=== PATIENT | female | born 1980 | race African-American/Black ===

== ENCOUNTER 2017-03-13 11:32 | Emergency (ER) | payer OTHER ==
[2017-03-13 11:32] VITALS: BP 154/74
[~2017-03-13 11:32] MED LIST: PREN1TAB54 PO
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
[2017-03-13] MEDS ORDERED: HYDROcodone/APAP 5/325MG 1 TAB TABLET PO ONE (12:00)
[2017-03-13] MEDS ORDERED: ONDANSETRON ODT 4 MG TAB.RAPDIS PO ONE (12:00)
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
== END 2017-03-13 13:05 | disposition home or self-care (01) ==
LOC: ER 11:32
DX: S20.219A Contusion of unspecified front wall of thorax, initial encounter (principal); V43.62XA Car passenger injured in collision with other type car in traffic accident, initial encounter; Y93.89 Activity, other specified; Y99.8 Other external cause status; Y92.89 Other specified places as the place of occurrence of the external cause
CPT/HCPCS: 71020; 99284; Q0162

== ENCOUNTER 2017-11-25 13:09 | Emergency (ER) | payer OTHER ==
[~2017-11-25] VITALS: Ht 149.9 cm; Wt 132.0 kg
[2017-11-25] MEDS ORDERED: IV NORMAL SALINE 1,000ML 1,000 ML IV ONE (13:45)
[2017-11-25 14:11] LABS: BILIRUBIN,URINE NEG (NEG); CLARITY,URINE HAZY; COLOR,URINE AMBER; GLUCOSE,URINE NEG (NEG); NITRITE,URINE POS (NEG); UROBILINOGEN,URINE 1 mg/dL (0.2 mg/dL)
[2017-11-25 14:12] LABS: BACTERIA,URINE MANY /HPF (0-FEW); WBC,URINE >40 /HPF (0-4)
[2017-11-25 14:13] LABS: SQUAMOUS EPITHELIAL CELL,UR FEW /LPF
[2017-11-25 14:26] LABS: BASO # 0.1 x10^3/uL (0.0-0.2); BASO % 1 % (0-3); EOS # 0.1 x10^3/uL (0.0-0.7); EOS % 1 % (0-3); HEMATOCRIT 39.5 % (36.0-47.0); LYMPH # 3.8 x10^3/uL (1.0-4.8); LYMPH % 33 % (24-48); MEAN CORPUSCULAR HEMOGLOBIN 30 pg (25-35); MEAN CORPUSCULAR HGB CONC 33 g/dL (31-37); MEAN CORPUSCULAR VOLUME 91 fL (79-100); MONO # 1.1 x10^3/uL (0.0-1.1); MONO % 9 % (0-9); NEUT # 6.4 x10^3uL (1.8-7.7); NEUT % 55 % (31-73); PLATELET COUNT 214 x10^3/uL (140-400); RED BLOOD COUNT 4.36 x10^6/uL (3.50-5.40); RED CELL DISTRIBUTION WIDTH 13.3 % (11.5-14.5); WHITE BLOOD COUNT 11.5 x10^3/uL (4.0-11.0)
[2017-11-25 14:41] LABS: CALCIUM 9.2 mg/dL (8.5-10.1); CREATININE 0.8 mg/dL (0.6-1.0); GFR 98.8; POTASSIUM 3.8 mmol/L (3.5-5.1)
[2017-11-25] MEDS ORDERED: cefTRIAXone IV Push 1 GM VIAL. IVP SCH (15:00)
[2017-11-25 15:05] LABS: % LYMPHS 41 % (24-48); % MONOS 9 % (0-10); % SEGS 50 % (35-66)
[2017-11-25 15:07] LABS: PLT ESTIMATE ADEQUATE (ADEQUATE)
[2017-11-25] MEDS ORDERED: SULF1TAB24 PO (15:09)
--- NOTE | 2017-11-25 15:09 | PHYS DOC ---
Past History Past Medical History: No Pertinent History Past Surgical History: Cholecystectomy, , Tubal ligation Smoking: Non-smoker Alcohol Use: None Drug Use: None Adult General Chief Complaint Chief Complaint: FLANK PAIN HPI HPI Patient is a 37 year old F who presents with urinary frequency and urgency associated with bilateral flank pain over the past 3-4 days. She also describes nausea. She states that this is similar to her previous kidney infection. However it does not feel as severe. [facility] and referred to the emergency room. She denies fever sweats or chills. His no other associated symptoms. She has no exacerbating or alleviating factors. Review of Systems Review of Systems Constitutional: Denies fever or chills [] Eyes: Denies change in visual acuity, redness, or eye pain [] HENT: Denies nasal congestion or sore throat [] Respiratory: Denies cough or shortness of breath [] Cardiovascular: No additional information not addressed in HPI [] GI: Denies abdominal pain, vomiting, bloody stools or diarrhea [] : Denies hematuria [] Musculoskeletal: Denies joint pain [] Integument: Denies rash or skin lesions [] Neurologic: Denies headache, focal weakness or sensory changes [] Endocrine: Denies polyuria or polydipsia [] All other systems were reviewed and found to be within normal limits, except as documented in this note. Family History Family History No pertinent family medical history was reported Current Medications Current Medications Current medications reviewed Current Medications Medications (Trade) Dose Ordered Sig/Samanta Start Time Stop Time Status Last Admin Dose Admin Ceftriaxone Sodium 1 gm/ Sodium Chloride 50 ml @ 100 mls/hr 1X ONCE 11/25/17 14:45 11/25/17 15:14 UNV Ceftriaxone Sodium (Rocephin) 1 gm Q24H 11/25/17 15:00 11/25/17 14:54 1 GM Sodium Chloride 1,000 ml @ 1,000 mls/hr 1X ONCE 11/25/17 13:45 11/25/17 14:44 DC 11/25/17 14:07 1,000 MLS/HR Allergies Allergies Allergies Uncoded Allergies Type Severity Reaction Last Updated Verified dairy Allergy Unknown 11/25/17 Physical Exam Physical Exam Constitutional: Well developed, well nourished, no acute distress, non-toxic appearance. [] HENT: Normocephalic, atraumatic, Eyes: EOMI, conjunctiva normal, no discharge. [] Neck: Normal range of motion, no tenderness, supple, no stridor. [] Cardiovascular:Heart rate regular rhythm, Lungs & Thorax: Bilateral breath sounds clear to auscultation [] Abdomen: Bowel sounds normal, soft, no tenderness, no masses, no pulsatile masses. [] Skin: Warm, dry, no erythema, no rash. [] Back: Mild bilateral flank pain with palpation Extremities: No tenderness, no cyanosis, no clubbing, ROM intact, no edema. [] Neurologic: Alert and oriented X 3, normal motor function, normal sensory function, no focal deficits noted. [] Psychologic: Affect normal, judgement normal, mood normal. [] Current Patient Data Vital Signs Vital Signs Date Time Temp Pulse Resp B/P (MAP) Pulse Ox O2 Delivery O2 Flow Rate FiO2 11/25/17 13:40 98.6 79 18 99 Room Air Lab Results Laboratory Tests Test 11/25/17 13:45 11/25/17 13:57 Urine Collection Type Void Urine Color [place] Urine Clarity Hazy Urine pH 5.5 Urine Specific Sidney 1.010 Urine Protein 30 mg/dl (NEG-TRACE) Urine Glucose (UA) Neg mg/dL (NEG) Urine Ketones (Stick) Neg mg/dL (NEG) Urine Blood Mod (NEG) Urine Nitrite Pos (NEG) Urine Bilirubin Neg (NEG) Urine Urobilinogen Dipstick 1 mg/dL (0.2 mg/dL) Urine Leukocyte Esterase Small (NEG) Urine RBC 11-20 /HPF (0-2) Urine WBC >40 /HPF (0-4) Urine Squamous Epithelial Cells Few /LPF Urine Bacteria Many /HPF (0-FEW) Urine Mucus Slight /LPF White Blood Count 11.5 x10^3/uL (4.0-11.0) H Red Blood Count 4.36 x10^6/uL (3.50-5.40) Hemoglobin 13.0 g/dL (12.0-15.5) Hematocrit 39.5 % (36.0-47.0) Mean Corpuscular Volume 91 fL (79-100) Mean Corpuscular Hemoglobin 30 pg (25-35) Mean Corpuscular Hemoglobin Concent 33 g/dL (31-37) Red Cell Distribution Width 13.3 % (11.5-14.5) Platelet Count 214 x10^3/uL (140-400) Neutrophils (%) (Auto) 55 % (31-73) Lymphocytes (%) (Auto) 33 % (24-48) Monocytes (%) (Auto) 9 % (0-9) Eosinophils (%) (Auto) 1 % (0-3) Basophils (%) (Auto) 1 % (0-3) Neutrophils # (Auto) 6.4 x10^3uL (1.8-7.7) Lymphocytes # (Auto) 3.8 x10^3/uL (1.0-4.8) Monocytes # (Auto) 1.1 x10^3/uL (0.0-1.1) Eosinophils # (Auto) 0.1 x10^3/uL (0.0-0.7) Basophils # (Auto) 0.1 x10^3/uL (0.0-0.2) Platelet Estimate Pending Sodium Level 138 mmol/L (136-145) Potassium Level 3.8 mmol/L (3.5-5.1) Chloride Level 101 mmol/L (98-107) Carbon Dioxide Level 28 mmol/L (21-32) Anion Gap 9 (6-14) Blood Urea Nitrogen 5 mg/dL (7-20) L Creatinine 0.8 mg/dL (0.6-1.0) Estimated GFR (Cockcroft-Gault) 98.8 Glucose Level 79 mg/dL (70-99) Calcium Level 9.2 mg/dL (8.5-10.1) EKG EKG [] Radiology/Procedures Radiology/Procedures [] Course & Med Decision Making Course & Med Decision Making Pertinent Labs and Imaging studies reviewed. (See chart for details) She was given a dose of IV Rocephin her to discharge Dragon Disclaimer Dragon Disclaimer This electronic medical record was generated, in whole or in part, using a voice recognition dictation system. Departure Departure: Impression: Primary Impression: Pyelonephritis Disposition: 01 HOME, SELF-CARE Condition: STABLE Referrals: PCP,NO (PCP) Patient Instructions: Pyelonephritis, Adult Additional Instructions: Norma was seen in the emergency department for urinary problems and back pain. No emergency medical condition was found on history or physical exam. She did have labs that suggested a kidney infection. She was given a dose of IV antibiotics and a prescription for oral antibiotics to continue over the next 2 weeks. She is encouraged to return to the emergency room if she develops new or worsening symptoms. She was also encouraged follow-up with her primary care doctor in the next 5-7 days for further management. Scripts Sulfamethoxazole/Trimethoprim (BACTRIM DS TABLET) 1 Each Tablet 1 TAB PO BID for 14 Days, #28 TAB Prov: HELGA OLIVEROS MD 11/25/17 HELGA OLIVEROS MD Nov 25, 2017 15:09
[2017-11-25 15:20] VITALS: BP 124/76
== END 2017-11-25 15:20 | disposition home or self-care (01) ==
LOC: ER 13:09
DX: N12 Tubulo-interstitial nephritis, not specified as acute or chronic (principal); Z90.49 Acquired absence of other specified parts of digestive tract; Z98.51 Tubal ligation status; Z91.011 Allergy to milk products
CPT/HCPCS: 36415; 80048; 81001; 85007; 85025; 96361; 96374; 99284; J0696; J7030

== ENCOUNTER 2019-10-10 21:16 | Emergency (ER) | payer OTHER ==
[~2019-10-10] VITALS: Ht 149.9 cm; Wt 137.3 kg
[2019-10-10 21:16] VITALS: BP 128/72
[~2019-10-10 21:16] MED LIST changes: +SULF1TAB24 PO
--- NOTE | 2019-10-10 21:19 | PHYS DOC ---
Past History Past Medical History: No Pertinent History Past Surgical History: Cholecystectomy, , Tubal ligation Smoking: Non-smoker Alcohol Use: None Drug Use: None Adult General Chief Complaint Chief Complaint: COUGH.. ".. I ve been coughing like crazy... nothing really coming up.. fever .. chills... last couple days.. ".. " One of people at work has Influ A.. " HPI HPI Patient is a 39 year old female who presents with above hx and complaints of cough, fever, chills, malaise, arthralgia, myalgia, wheezing, and pharyngitis. Patient denies any travel . Has been exposed to coworkers that has influenza A. Patient denied get a flu vaccination this season. No history immunosuppression. Patient normally follows Dr. Vergara Review of Systems Review of Systems Constitutional: History of fever or chills [] Eyes: Denies change in visual acuity, redness, or eye pain [] HENT: History of nasal congestion and sore throat [] Respiratory: History of cough and wheezing Cardiovascular: No additional information not addressed in HPI [] GI: Denies abdominal pain, nausea, vomiting, bloody stools or diarrhea [] : Denies dysuria or hematuria [] Musculoskeletal: Complaints of generalized myalgia and arthralgia Integument: Denies rash or skin lesions [] Neurologic: Denies headache, focal weakness or sensory changes [] Endocrine: Denies polyuria or polydipsia [] All other systems were reviewed and found to be within normal limits, except as documented in this note. Family History Family History Noncontributory to presentation Current Medications Current Medications See nursing for home medications Allergies Allergies Allergies Uncoded Allergies Type Severity Reaction Last Updated Verified dairy Allergy Unknown 11/25/17 Physical Exam Physical Exam Constitutional: Moderate acute distress, non-toxic appearance. [] HENT: Normocephalic, atraumatic, bilateral external ears normal, oropharynx moist, injected pharynx,, no oral exudates, nose swollen turbinates and clear rhinorrhea Eyes: PERRLA, EOMI, conjunctiva normal, no discharge. [] Neck: Normal range of motion, no tenderness, supple, no stridor. [] Cardiovascular: Tachycardia Heart rate regular rhythm, no murmur [] Lungs & Thorax: Bilateral breath sounds equal at apexes scattered wheezes on auscultation [] Abdomen: Bowel sounds normal, soft, no tenderness, no masses, no pulsatile masses. Obese. Old surgical scars. Skin: Warm, dry, no erythema, no rash. [] Back: No tenderness, no CVA tenderness. [] Extremities: No tenderness, no cyanosis, no clubbing, ROM intact, trace ankle edema. [] No cording appreciated. Neurologic: Alert and oriented X 3, normal motor function, normal sensory function, no focal deficits noted. [] Psychologic: Affect anxious, judgement normal, mood normal. [] EKG EKG [] Radiology/Procedures Radiology/Procedures [] Course & Med Decision Making Course & Med Decision Making Pertinent Labs and Imaging studies reviewed. (See chart for details) Patient to push fluids and cool drinks. Patient take Tylenol and ibuprofen as needed for discomfort. Patient to use MDI 2 puffs 4 times a day. Patient take T amiflu 75 mg twice day. Patient to follow-up with Dr. Vergara. Patient return if any concerns. . Impression 1. Influenza A [] Dragon Disclaimer Dragon Disclaimer This electronic medical record was generated, in whole or in part, using a voice recognition dictation system. Departure Departure: Disposition: 01 HOME/RESIDENCE PRIOR TO ADM Condition: STABLE Referrals: PCP,NO (PCP) Scripts Oseltamivir Phosphate (TAMIFLU) 75 Mg Capsule 75 MG PO BID for Influ A+ for 5 Days, #10 CAP Prov: RICO MICHEL MD 10/10/19 Bk Disclaimer This chart was dictated in whole or in part using Voice Recognition software in a busy, high-work load, and often noisy Emergency Department environment. It may contain unintended and wholly unrecognized errors or omissions. Dragon Disclaimer This chart was dictated in whole or in part using Voice Recognition software in a busy, high-work load, and often noisy Emergency Department environment. It may contain unintended and wholly unrecognized errors or omissions. RICO MICHEL MD Oct 10, 2019 21:19
[2019-10-10] MEDS ORDERED: predniSONE 10 MG TABLET PO ONE (22:00)
[2019-10-10] MEDS ORDERED: ALBUTEROL SULFATE 8GM INHALER. INH ONE (22:00)
[2019-10-10 22:11] LABS: INFLUENZA A PATIENT POSITIVE (NEGATIVE); INFLUENZA B PATIENT NEGATIVE (NEGATIVE)
[2019-10-10] MEDS ORDERED: OSEL75CA PO (22:25)
[2019-10-10] MEDS ORDERED: OSELTAMIVIR 75 MG CAPSULE PO ONE (22:30)
[2019-10-10] MEDS ORDERED: oxyCODONE/APAP 5/325 1 TAB TABLET PO ONE (22:30)
[2019-10-10 23:39] LABS: BARBITURATES NEG (NEG); BENZODIAZEPINES NEG (NEG); CANNABINOIDS NEG (NEG); COCAINE NEG (NEG); METHADONE NEG (NEG); OPIATES NEG (NEG); PHENCYCLIDINE NEG (NEG)
[2019-10-10 23:47] LABS: AMPHETAMINE/METHAMPHETAMINE NEG (NEG)
[2019-10-10 23:53] LABS: BILIRUBIN,URINE NEG (NEG); CLARITY,URINE HAZY; COLOR,URINE YELLOW; GLUCOSE,URINE NEG (NEG); NITRITE,URINE NEG (NEG); U PREG PATIENT NEGATIVE (NEG)
[2019-10-10 23:54] LABS: BACTERIA,URINE FEW /HPF (0-FEW); RBC,URINE >40 /HPF (0-2); SQUAMOUS EPITHELIAL CELL,UR FEW /LPF; WBC,URINE OCC /HPF (0-4)
== END 2019-10-10 23:00 | disposition home or self-care (01) ==
LOC: ER 21:16
DX: J10.1 Influenza due to other identified influenza virus with other respiratory manifestations (principal); Z91.011 Allergy to milk products; Z90.49 Acquired absence of other specified parts of digestive tract
CPT/HCPCS: 36415; 80307; 81001; 81025; 87070; 87804; 87880; 94640; 99284; J7512; J7613; 94664